=== PATIENT | male | born 2000 | race Caucasian/White ===

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

== ENCOUNTER 2020-08-29 18:40 | Observation (INO) | payer OTHER ==
[2020-08-29] MEDS ORDERED: SODIUM CHLORIDE 0.9% 500 ML 500 ML IV STA (18:53)
[2020-08-29] MEDS ORDERED: SODIUM CHLORIDE 0.9% 1,000 ML IV STA (18:53)
--- NOTE | 2020-08-29 18:56 | ED ---
General Adult HPI - General Source: patient, RN notes reviewed Mode of arrival: ambulatory Limitations: no limitations <Paul Navarrete - Last Filed: 08/29/20 18:58> <Jose Francisco Argueta - Last Filed: 08/29/20 21:03> - General Stated complaint: pancreatitis Time Seen by Provider: 08/29/20 18:55 - History of Present Illness Initial comments: This a 19-year-old male presents emergency Department with chief complaint ABDOMINAL PAIN. PATIENT STATES PAIN STARTED THIS MORNING. PATIENT WAS SEEN BY PCP WHO HAS CT SHOWING EVIDENCE OF ACUTE PANCREATITIS. PATIENT HAS NO SYMPTOMS PAST ALCOHOL HISTORY. PATIENT DID SIGN A NO VOMITING. NO SIGNIFICANT DIARRHEA CONSTIPATION DYSURIA HEMATURIA. NO FEVERS OR CHILLS. PATIENT HAS MID ABDOMINAL TO EPIGASTRIC PAIN. Patient states that he was started Viibryd Within the last month or 2 for his depression. (Paul Navarrete) Dictation was produced using [employer] dictation software. please excuse any grammatical, word or spelling errors. This patient was cared for during a federal and state declared state of emergency secondary to Covid 19 Chief Complaint:19 y Old male presents with abnormal CT History of Present Illness: This is a 19-year-old male presents to the emergency department for abnormal CT. Patient states he woke up at 8 AM this morning with severe abdominal pain. Thought that his symptoms were from being hungry. Patient tried eating however symptoms are not improved. He called his mom was brought to primary care physician ordered a CT of the abdomen and pelvis. Patient CT showed pancreatitis. Patient denies any medical problems. Does not drink alcohol. Denies any history of abdominal surgery. Does have history of asthma. States his pain is epigastric. Without any radiation to the back. Symptoms. The ROS documented in this emergency department record has been reviewed and confirmed by me. Those systems with pertinent positive or negative responses have been documented in the HPI. All other systems are other negative and/or noncontributory. PHYSICAL EXAM: General Impression: Alert and oriented x3, mild distress secondary to abdominal pain HEENT: Normocephalic atraumatic, extra-ocular movements intact, pupils equal and reactive to light bilaterally, mucous membranes moist. Cardiovascular: Heart regular rate and rhythm Chest: Able to complete full sentences, no retractions, no tachypnea Abdomen: abdomen soft, palpatory tenderness to the epigastric region non- distended, no organomegaly, negative Hernandez sign Musculoskeletal: Pulses present and equal in all extremities, no peripheral edema Motor: no focal deficits noted Neurological: CN II-XII grossly intact, no focal motor or sensory deficits noted Skin: Intact with no visualized rashes Psych: Normal affect and mood ED course: 19-year-old male presents to the emergency department for radiographic evidence of pancreatitis. Clinically he does have epigastric pain. All signs upon arrival are within acceptable limits. Lavatory evaluation obtained. CBC shows leukocytosis 12.7 secondary to stress. Metabolic panel is unremarkable. ALT 79. Lipase is 563. Patient reevaluated at bedside. Still appears to be slightly uncomfortable. Given that he does have radiographic evidence of pancreatitis with moderate symptoms that aren't improving with analgesics patient will be admitted to observation for IV hydration, pain control and GI consultation. Case was discussed with Suzie Webber was went except patient's care on behalf of [facility] hospitalist group. (Jose Francisco Argueta) - Related Data Home Medications Medication Instructions Recorded Confirmed busPIRone HCl [Buspar] 10 mg PO HS 02/10/17 08/29/20 Cetirizine HCl 10 mg PO HS 08/29/20 08/29/20 Vilazodone HCl [Viibryd] 40 mg PO HS 08/29/20 08/29/20 Allergies Allergy/AdvReac Type Severity Reaction Status Date / Time egg Allergy Unknown Verified 08/29/20 20:36 milk Allergy Unknown Verified 08/29/20 20:36 Review of Systems ROS Other: All systems not noted in ROS Statement are negative. <Paul Navarrete - Last Filed: 08/29/20 18:58> ROS Other: All systems not noted in ROS Statement are negative. <Jose Francisco Argueta - Last Filed: 08/29/20 21:03> ROS Statement: Those systems with pertinent positive or pertinent negative responses have been documented in the HPI. Past Medical History Past Medical History: Asthma History of Any Multi-Drug Resistant Organisms: None Reported Past Surgical History: No Surgical Hx Reported Past Psychological History: ADD/ADHD, Depression Past Alcohol Use History: None Reported Past Drug Use History: None Reported <Paul Navarrete - Last Filed: 08/29/20 18:58> Course Vital Signs 08/29/20 08/29/20 18:53 19:34 Temperature 98.6 F Pulse Rate 63 67 Respiratory 18 18 Rate Blood Pressure 121/82 125/85 O2 Sat by Pulse 98 98 Oximetry Medical Decision Making - Lab Data Result diagrams: 08/29/20 19:33 08/29/20 19:33 <Jose Francisco Argueta - Last Filed: 08/29/20 21:03> - Lab Data Lab Results 08/29/20 08/29/20 Range/Units 19:33 19:33 WBC 12.7 H (4.0-11.0) k/uL RBC 5.27 (4.30-5.90) m/uL Hgb 15.4 (13.0-17.5) gm/dL Hct 44.2 (39.0-53.0) % MCV 83.9 (80.0-100.0) fL MCH 29.1 (25.0-35.0) pg MCHC 34.7 (31.0-37.0) g/dL RDW 13.2 (11.5-15.5) % Plt Count 268 (150-450) k/uL MPV 7.0 Neutrophils % 80 % Lymphocytes % 13 % Monocytes % 5 % Eosinophils % 1 % Basophils % 0 % Neutrophils # 10.2 H (1.3-7.7) k/uL Lymphocytes # 1.7 (1.0-4.8) k/uL Monocytes # 0.7 (0-1.0) k/uL Eosinophils # 0.1 (0-0.7) k/uL Basophils # 0.0 (0-0.2) k/uL Sodium 135 L (137-145) mmol/L Potassium 3.6 (3.5-5.1) mmol/L Chloride 99 (98-107) mmol/L Carbon Dioxide 28 (22-30) mmol/L Anion Gap 8 mmol/L BUN 12 (9-20) mg/dL Creatinine 0.98 (0.66-1.25) mg/dL Est GFR (CKD-EPI)AfAm >90 (>60 ml/min/1.73 sqM) Est GFR (CKD-EPI)NonAf >90 (>60 ml/min/1.73 sqM) Glucose 98 (74-99) mg/dL Calcium 9.7 (8.4-10.2) mg/dL Total Bilirubin 0.7 (0.2-1.3) mg/dL AST 48 (17-59) U/L ALT 79 H (4-49) U/L Alkaline Phosphatase 86 (38-126) U/L Total Protein 7.6 (6.3-8.2) g/dL Albumin 4.6 (3.5-5.0) g/dL Lipase 563 H (23-300) U/L Disposition <Paul Navarrete - Last Filed: 08/29/20 18:58> Decision Time: 21:02 <Jose Francisco Argueta - Last Filed: 08/29/20 21:03> Clinical Impression: Pancreatitis Disposition: ADMITTED IP TO THIS HOSP Condition: Fair Referrals: Patricia Wiley DO [Primary Care Provider] - 1-2 days
[2020-08-29] MEDS ORDERED: KETOROLAC 15 MG/ML 1 ML VIAL IVP STA (19:53)
[2020-08-29 19:59] LABS: Basophils % (A) 0 %; Eosinophils # (A) 0.1 k/uL (0-0.7); Eosinophils % (A) 1 %; HCT 44.2 % (39.0-53.0); HGB 15.4 gm/dL (13.0-17.5); Lymphocytes # (A) 1.7 k/uL (1.0-4.8); Lymphocytes % (A) 13 %; MCH 29.1 pg (25.0-35.0); MCHC 34.7 g/dL (31.0-37.0); MCV 83.9 fL (80.0-100.0); Monocytes # (A) 0.7 k/uL (0-1.0); Monocytes % (A) 5 %; Neutrophils # (A) 10.2 k/uL (1.3-7.7); Neutrophils % (A) 80 %; Platelet Count 268 k/uL (150-450); RBC 5.27 m/uL (4.30-5.90); RDW 13.2 % (11.5-15.5); WBC 12.7 k/uL (4.0-11.0)
[2020-08-29 20:14] LABS: ALT 79 U/L (4-49); AST 48 U/L (17-59); African American GFR (CKD) >90 (>60 ml/min/1.73 sqM); Albumin 4.6 g/dL (3.5-5.0); Alkaline Phosphatase 86 U/L (38-126); Anion Gap 8 mmol/L; Blood Urea Nitrogen 12 mg/dL (9-20); Calcium 9.7 mg/dL (8.4-10.2); Carbon Dioxide 28 mmol/L (22-30); Chloride 99 mmol/L (98-107); Glucose 98 mg/dL (74-99); Lipase 563 U/L (23-300); Non-African American GFR(CKD) >90 (>60 ml/min/1.73 sqM); Potassium 3.6 mmol/L (3.5-5.1); Sodium 135 mmol/L (137-145); Total Bilirubin 0.7 mg/dL (0.2-1.3); Total Protein 7.6 g/dL (6.3-8.2)
[2020-08-29] MEDS ORDERED: ACETAMINOPHEN TAB 325 MG TAB PO PRN (20:58)
[2020-08-29] MEDS ORDERED: ONDANSETRON 4 MG/2 ML VIAL IVP PRN (20:58)
[2020-08-29] MEDS ORDERED: NALOXONE 0.4 MG/ML 1 ML VIAL IV PRN (20:58)
[2020-08-29] MEDS ORDERED: MORPHINE SULFATE 4 MG/ML SYRINGE IV STA (21:01)
[2020-08-29] MEDS: SODIUM CHLORIDE 0.9% 1,000 ML IV SCH (21:53)
[2020-08-30] MEDS: NON FORMULARY DRUG (Vilazodone Hcl [Viibryd] 40 MG Tablet) PO SCH ×2 (00:02→20:39)
[2020-08-30] MEDS: LORATADINE 10 MG TAB PO SCH ×2 (00:04→20:38)
[2020-08-30] MEDS: busPIRone HCl 10 MG TAB PO SCH ×2 (00:04→20:38)
[2020-08-30] MEDS: MORPHINE SULFATE 4 MG/ML SYRINGE IV PRN ×4 (00:13→22:16)
[2020-08-30] MEDS: SODIUM CHLORIDE 0.9% 1,000 ML IV SCH ×4 (04:30→23:40)
--- NOTE | 2020-08-30 09:04 | US ---
EXAMINATION TYPE: US gallbladder DATE OF EXAM: 08/30/2020 COMPARISON: CT 08/30/2019 CLINICAL HISTORY: pancreatitis, epigastric pain. Pancreatitis, nausea EXAM MEASUREMENTS: Liver Length: 17.0 cm Gallbladder Wall: 0.3 cm CBD: 0.5 cm Right Kidney: 11.1 x 4.2 x 4.4 cm Technical limitations due to patient's body habitus and large amount of overlying bowel content Pancreas: Obscured by bowel gas Liver: limited evaluation, visualized portions appear wnl Gallbladder: no evidence of stones Evidence for sonographic Hernandez's sign: no CBD: appears wnl Right Kidney: no evidence of hydronephrosis IMPRESSION: Exam is limited. Correlate for hepatic steatosis
[2020-08-30 11:14] LABS: Basophils % (A) 0 %; Eosinophils % (A) 0 %; HCT 44.4 % (39.0-53.0); HGB 14.8 gm/dL (13.0-17.5); Lymphocytes # (A) 1.3 k/uL (1.0-4.8); Lymphocytes % (A) 13 %; MCH 28.4 pg (25.0-35.0); MCHC 33.3 g/dL (31.0-37.0); MCV 85.2 fL (80.0-100.0); Monocytes # (A) 0.7 k/uL (0-1.0); Monocytes % (A) 7 %; Neutrophils # (A) 7.8 k/uL (1.3-7.7); Neutrophils % (A) 78 %; Platelet Count 227 k/uL (150-450); RBC 5.21 m/uL (4.30-5.90); RDW 13.3 % (11.5-15.5); WBC 10.1 k/uL (4.0-11.0)
[2020-08-30 11:35] LABS: ALT 62 U/L (4-49); AST 34 U/L (17-59); African American GFR (CKD) >90 (>60 ml/min/1.73 sqM); Albumin 3.9 g/dL (3.5-5.0); Albumin/Globulin Ratio 1.4; Alkaline Phosphatase 79 U/L (38-126); Amylase 160 U/L (30-110); Anion Gap 7 mmol/L; Blood Urea Nitrogen 10 mg/dL (9-20); Calcium 9.2 mg/dL (8.4-10.2); Carbon Dioxide 30 mmol/L (22-30); Chloride 102 mmol/L (98-107); Globulin 2.7 g/dL; Glucose 92 mg/dL (74-99); Lipase 574 U/L (23-300); Non-African American GFR(CKD) >90 (>60 ml/min/1.73 sqM); Potassium 4.1 mmol/L (3.5-5.1); Sodium 139 mmol/L (137-145); Total Bilirubin 1.3 mg/dL (0.2-1.3); Total Protein 6.6 g/dL (6.3-8.2)
[2020-08-30 12:43] LABS: Triglycerides 100 mg/dL (<150)
--- NOTE | 2020-08-30 15:50 | HP ---
HISTORY AND PHYSICAL DATE OF SERVICE: 08/30/2020. CHIEF COMPLAINT: Abdominal pain. HISTORY OF PRESENT ILLNESS: This 19-year-old gentleman with a past medical history of asthma, being followed by Dr. Wiley in the outpatient setting is complaining of severe abdominal pain. The pain was felt yesterday morning. It was felt in the anterior part of the chest. CT scan showed significant pancreatitis and amylase and lipase elevated. Patient was admitted for further evaluation. There is no history of fever or rigors. There is no history of headache, loss of consciousness or seizures. No history of any contact with COVID-19 infection. Other labs showed sodium is 135, and ALT was 79. WBC was 12.7 on admission. There is no history of fever, rigors, chills at this time. PAST MEDICAL HISTORY: History of asthma, ADD, ADHD, anxiety, depression, vaping. MEDICATIONS: Medications are: 1. BuSpar. 2. Vilazodone. 3. Cetirizine. ALLERGIES: MILK and EGGS. FAMILY HISTORY: No history of heart disease or strokes in the family. SOCIAL HISTORY: As mentioned earlier, vaping. REVIEW OF SYSTEMS: ENT: No diminished hearing or diminished vision. CARDIOVASCULAR SYSTEM: No angina. RESPIRATORY SYSTEM: As mentioned earlier. GI: As mentioned earlier. : No dysuria. NERVOUS SYSTEM: No numbness or weakness. ALLERGY/IMMUNOLOGY: As mentioned earlier. HEMATOLOGY/ONCOLOGY: No history of anemia. ENDOCRINE: No history of diabetes or hypothyroidism. CONSTITUTIONAL: As mentioned earlier. DERMATOLOGY: Negative. RHEUMATOLOGY: Negative. PSYCHIATRY: As mentioned earlier. PHYSICAL EXAMINATION: The patient is alert and oriented x3. Pulse 64, blood pressure 105/59, respiration 14, temperature 97.8, pulse ox 98% on room air. HEENT: Conjunctivae normal. NECK: No jugular venous distention. CARDIOVASCULAR: S1, S2 muffled. RESPIRATORY: Breath sounds diminished at the bases. No rhonchi, no crackles. ABDOMEN: Soft. Mild diffuse tenderness upper abdomen. No guarding. No rigidity. No mass palpable. LEGS: No edema, no swelling. NERVOUS SYSTEM: Higher function as mentioned earlier. Moves all 4 limbs. No focal motor or sensory deficits. LYMPHATICS: No lymphadenopathy of the neck, axillae or groin. SKIN: No ulcer, rash or bleeding. JOINTS: No active deforming arthropathy. LABS: WBC 10.1, hemoglobin 14.8. Other labs are noted. ASSESSMENT: 1. Abdominal pain with acute severe pancreatitis. 2. Hyponatremia. 3. Increased ALT. 4. Increased WBC, improved. 5. History of asthma. 6. History of attention deficit disorder, attention deficit hyperactivity disorder. 7. History of anxiety. 8. History of depression. 9. History of vaping. 10.Asthma, chronic intermittent. RECOMMENDATIONS AND DISCUSSION: This 19-year-old gentleman who presented with multiple complex medical issues, will monitor the patient closely. Continue symptomatic treatment. Otherwise, Gastroenterology consultation. CT scan noted. Guarded prognosis. Further recommendations to follow. The patient is on n.p.o. at this time. IgG subclasses are ordered. CROW also ordered. I would also recommend UA with micro also. A copy of dictation forwarded to Dr. Wiley's office. KALYAN / CHRISTINE: [phone] /
[2020-08-30 17:41] LABS: Appearance,Urine Clear (Clear); Bilirubin,Urine Negative (Negative); Blood,Urine Negative (Negative); Color,Urine Light Yellow; Glucose,Urine (UA) Negative (Negative); Ketones,Urine 2+ (Negative); Leukocyte Esterase,Urine Negative (Negative); Nitrite,Urine Negative (Negative); Protein,Urine Negative (Negative); Specific Gravity,Urine 1.011 (1.001-1.035); Urobilinogen,Urine <2.0 mg/dL (<2.0)
[2020-08-30 17:48] LABS: Amphetamine Screen,Urine Not Detected (NotDetected); Barbiturate Screen,Urine Not Detected (NotDetected); Benzodiazepines Screen,Urine Not Detected (NotDetected); Cocaine Screen,Urine Not Detected (NotDetected); Methadone Screen, Urine Not Detected (NotDetected); Opiate Screen,Urine Detected (NotDetected); Oxycodone Screen, Urine Not Detected (NotDetected); Phencyclidine Screen,Urine Not Detected (NotDetected); Tricyclic Antidepressant,Urine Not Detected (NotDetected); Urn Cannabinoid Scrn Detected (NotDetected)
[2020-08-31 03:26] VITALS: RESP 18
[2020-08-31] MEDS: SODIUM CHLORIDE 0.9% 1,000 ML IV SCH ×2 (03:59→08:31)
--- NOTE | 2020-08-31 06:46 | P.CONS ---
History of Present Illness - Reason for Consult Consult date: 08/30/20 Pancreatitis Requesting physician: Patricia Wiley - Chief Complaint Abdominal pain - History of Present Illness 19-year-old male with a medical history significant for depression who presented to the hospital with complaints of abdominal pain. The patient reports 1 day of severe epigastric abdominal pain. Pain is in the epigastric region of his abdomen and into his chest. Pain is severe in nature with associated nausea but no vomiting. No prior episodes of similar pain. No change in bowel habits, constipation, diarrhea or blood per rectum. The patient denies any new exposures, any new medications, or family history of pancreatitis or hepatobiliary pathology. On presentation the patient was found to have elevation in his lipase at 563 with computed tomography scan of the abdomen and pelvis with findings of acute pancreatitis of the pancreatic tail with no evidence of necrosis or peripancreatic fluid. Subsequent ultrasound the gallbladder was limited with no CBD dilation or cholelithiasis noted. Currently the patient is still reporting some abdominal pain, otherwise no acute complaints. Review of Systems REVIEW OF SYSTEMS: CONSTITUTIONAL: Denies any fevers, chills, weight change or fatigue. CARDIOVASCULAR: Denies any chest pain, palpitations high or low blood pressures RESPIRATORY: Denies any shortness of breath, hemoptysis or cough. GENITOURINARY: No dysuria or hematuria. MUSCULOSKELETAL: No weakness reported. SKIN: Denies any new rashes or lesions, jaundice or pallor. PSYCHIATRIC: Denies any depression or anxiety, the patient does have a history of depression and overdose of the past. NEUROLOGY: Denies headache, denies any new focal deficits. EARS/NOSE/THROAT: No recent hearing change, congestion, nasal discharge or sore throat. EYES: No pain in eyes, discharge or change in vision. GASTROINTESTINAL: As per HPI. Past Medical History Past Medical History: Asthma History of Any Multi-Drug Resistant Organisms: None Reported Past Surgical History: No Surgical Hx Reported Additional Past Surgical History / Comment(s): Temple teeth removal Past Anesthesia/Blood Transfusion Reactions: No Reported Reaction Past Psychological History: ADD/ADHD, Anxiety, Depression Smoking Status: Vaper Past Alcohol Use History: None Reported Past Drug Use History: None Reported Additional History: Family history: Reviewed with the patient and noncontributory to current medical presentation, the patient denies any family history of pancreatic or hepatobiliary disease. Medications and Allergies Home Medications Medication Instructions Recorded Confirmed Type busPIRone HCl [Buspar] 10 mg PO HS 02/10/17 08/29/20 History Cetirizine HCl 10 mg PO HS 08/29/20 08/29/20 History Vilazodone HCl [Viibryd] 40 mg PO HS 08/29/20 08/29/20 History Allergies Allergy/AdvReac Type Severity Reaction Status Date / Time egg Allergy Unknown Verified 08/29/20 20:36 milk Allergy Unknown Verified 08/29/20 20:36 Physical Exam Vitals: Vital Signs Temp Pulse Pulse Resp BP BP Pulse Ox 08/30/20 06:45 97.7 F 64 16 116/68 98 08/30/20 01:53 97.8 F 64 14 105/59 98 08/30/20 01:28 18 08/29/20 23:49 98.3 F 60 14 100/68 100 08/29/20 21:58 61 18 115/70 98 08/29/20 19:34 67 18 125/85 98 08/29/20 18:53 98.6 F 63 18 121/82 98 Intake and Output 08/29/20 08/30/20 08/30/20 22:59 06:59 14:59 Intake Total 1060 Balance 1060 Intake: Intake, IV Titration 1060 Amount Sodium Chloride 0.9% 1, 1060 000 ml @ 120 mls/hr IV . Q8H20M [facility] Rx#:[id number] Other: Voiding Method Toilet # Voids 2 Weight 106.594 kg On physical examination, patient appears comfortable in no apparent distress. HEAD: Normocephalic, atraumatic. EYES: No scleral icterus. No conjunctival injection. MOUTH: No lesions, tongue midline. NECK: Trachea midline, no gross abnormalities. CHEST: Clear to auscultation with no wheezing or rhonchi appreciated. HEART: Regular rate and rhythm. ABDOMEN: Soft, mildly tender to palpation. Bowel sounds are positive. No organomegaly. No guarding or rigidity. EXTREMITIES: No pedal edema. SKIN: No rashes, no jaundice. NEUROLOGIC: Alert and oriented x3. No focal deficits. Results CBC & Chem 7: 08/30/20 09:49 08/30/20 09:49 Labs: Abnormal Lab Results - Last 24 Hours (Table) 08/29/20 08/29/20 08/30/20 Range/Units 19:33 19:33 09:49 WBC 12.7 H (4.0-11.0) k/uL Neutrophils # 10.2 H 7.8 H (1.3-7.7) k/uL Sodium 135 L (137-145) mmol/L ALT 79 H (4-49) U/L Amylase (30-110) U/L Lipase 563 H (23-300) U/L 08/30/20 Range/Units 09:49 WBC (4.0-11.0) k/uL Neutrophils # (1.3-7.7) k/uL Sodium (137-145) mmol/L ALT 62 H (4-49) U/L Amylase 160 H (30-110) U/L Lipase 574 H (23-300) U/L CT scan - abdomen: report reviewed (Computed tomography scan of the abdomen and pelvis significant findings of acute uncomplicated pancreatitis.) Assessment and Plan (1) Pancreatitis Narrative/Plan: 19-year-old male presenting to the hospital with abdominal pain, the patient was found to have elevation in his lipase and CT findings of acute uncomplicated pancreatitis on presentation. No evidence of cholelithiasis or choledocholithiasis on ultrasound of the abdomen. Patient denies any excessive alcohol use or abuse. The patient does use tobacco and marijuana products. No prior episodes of pancreatitis. He denies any family history of pancreatic or hepatobiliary disease. Current Visit: Yes Status: Acute Code(s): K85.90 - ACUTE PANCREATITIS WITHOUT NECROSIS OR INFECTION, UNSP SNOMED Code(s): 02217580 (2) Abdominal pain Current Visit: Yes Status: Acute Code(s): R10.9 - UNSPECIFIED ABDOMINAL PAIN SNOMED Code(s): 21779993 Plan: Supportive care Nothing by mouth except for ice chips Continue aggressive IV hydration Continue pain control Continue to monitor CBC, CMP Triglyceride level, CROW and IgG4 levels ordered Extensive discussion with the patient regarding avoidance of tobacco and marijuana products going forward Thank you for allowing us to participate in the care of the patient
[2020-08-31 07:19] LABS: ALT 49 U/L (4-49); AST 28 U/L (17-59); African American GFR (CKD) >90 (>60 ml/min/1.73 sqM); Albumin 3.9 g/dL (3.5-5.0); Albumin/Globulin Ratio 1.3; Alkaline Phosphatase 69 U/L (38-126); Amylase 100 U/L (30-110); Anion Gap 9 mmol/L; Blood Urea Nitrogen 8 mg/dL (9-20); Carbon Dioxide 25 mmol/L (22-30); Chloride 103 mmol/L (98-107); Cholesterol 186 mg/dL (<200); Globulin 2.9 g/dL; Glucose 92 mg/dL (74-99); HDL Cholesterol 40 mg/dL (40-60); LDL Cholesterol,Calculated 128 mg/dL (0-99); Lipase 247 U/L (23-300); Non-African American GFR(CKD) >90 (>60 ml/min/1.73 sqM); Potassium 3.6 mmol/L (3.5-5.1); Sodium 137 mmol/L (137-145); Total Bilirubin 1.8 mg/dL (0.2-1.3); Total Protein 6.8 g/dL (6.3-8.2); Triglycerides 91 mg/dL (<150)
[2020-08-31 09:32] LABS: IgG Subclass 3 21.8 mg/dL (11.0-85.0); IgG Subclass 4 67.6 mg/dL (3.0-175.0)
[2020-08-31 10:04] LABS: Basophils # (A) 0.02 X 10*3/uL (0.00-0.10); Basophils % (A) 0.2 %; Eosinophils # (A) 0.01 X 10*3/uL (0.04-0.35); Eosinophils % (A) 0.1 %; HCT 42.3 % (39.6-50.0); HGB 13.8 g/dL (13.0-17.0); Lymphocytes # (A) 1.67 X 10*3/uL (0.90-5.00); Lymphocytes % (A) 16.9 %; MCH 27.8 pg (27.0-32.0); MCHC 32.6 g/dL (32.0-37.0); MCV 85.3 fL (80.0-97.0); Mean Platelet Volume 10.2 fL (9.5-12.2); Monocytes # (A) 1.18 X 10*3/uL (0.20-1.00); Monocytes % (A) 11.9 %; Neutrophils # (A) 6.99 X 10*3/uL (1.80-7.70); Neutrophils % (A) 70.6 %; Platelet Count 249 X 10*3/uL (140-440); RBC 4.96 X 10*6/uL (4.40-5.60); RDW 12.9 % (11.5-14.5)
[2020-08-31 14:02] VITALS: BP 124/79; PULSE 72; TEMP 97.9
--- NOTE | 2020-08-31 15:10 | P.PN ---
Subjective Progress Note Date: 08/31/20 Principal diagnosis: Pancreatitis Patient was seen and examined lying in bed. He states the abdominal pain has improved. He denies any nausea or vomiting. He is using pain medication in moderation. Tolerated clear liquid diet without any difficulties and would like to advance. Pancreatic enzymes continued to trend down. Denies having a bowel movement, but did pass gas. Objective - Vital Signs Vital signs: Vital Signs Temp 97.9 F 08/31/20 13:27 Pulse 72 08/31/20 13:27 Resp 18 08/31/20 13:27 BP 124/79 08/31/20 13:27 Pulse Ox 98 08/31/20 13:27 Intake & Output 08/30/20 08/31/20 08/31/20 18:59 06:59 18:59 Intake Total 1000 3200 900 Balance 1000 3200 900 Intake: Intake, IV Titration 1000 3200 Amount Sodium Chloride 0.9% 1, 1000 3200 000 ml @ 125 mls/hr IV . Q8H [facility] Rx#:[id number] Oral 0 900 Other: Voiding Method Toilet # Voids 1 4 1 # Bowel Movements 0 - Exam General appearance: The patient is alert, oriented, appears in no acute distress. HET: Head is normocephalic and atraumatic. Conjunctiva pink. Sclera anicteric. Neck: Supple without lymphadenopathy. Abdomen: Soft, mild epigastric tenderness, nondistended with bowel sounds. No guarding or rigidity. Extremities: Normal skin color and turgor. No pedal edema Skin: No rashes, no jaundice Neurological: No focal deficits. Alert and oriented 3. - Labs CBC & Chem 7: 08/31/20 06:03 08/31/20 06:03 Labs: Abnormal Lab Results - Last 24 Hours (Table) 08/30/20 08/31/20 08/31/20 Range/Units 17:17 06:03 06:03 Monocytes # 1.18 H (0.20-1.00) X 10*3/uL Eosinophils # 0.01 L (0.04-0.35) X 10*3/uL BUN 8 L (9-20) mg/dL Total Bilirubin 1.8 H (0.2-1.3) mg/dL LDL Cholesterol, Calc 128 H (0-99) mg/dL Urine Ketones 2+ H (Negative) Urine Opiates Screen Detected H (NotDetected) U Marijuana (THC) Screen Detected H (NotDetected) Assessment and Plan (1) Pancreatitis Narrative/Plan: 19-year-old male presenting to the hospital with abdominal pain, the patient was found to have elevation in his lipase and CT findings of acute uncomplicated pancreatitis on presentation. No evidence of cholelithiasis or choledocholithiasis on ultrasound of the abdomen. Patient denies any excessive alcohol use or abuse. The patient does use tobacco and marijuana products. No prior episodes of pancreatitis. He denies any family history of pancreatic or hepatobiliary disease. Blood workup including CROW, IgG 4 and triglycerides all negative. Current Visit: Yes Status: Acute Code(s): K85.90 - ACUTE PANCREATITIS WITHOUT NECROSIS OR INFECTION, UNSP SNOMED Code(s): 55313914 (2) Abdominal pain Current Visit: Yes Status: Acute Code(s): R10.9 - UNSPECIFIED ABDOMINAL PAIN SNOMED Code(s): 51847690 Plan: Supportive care Advance to low-fat diet Decrease IVF to 125ml/hr Continue pain control Continue to monitor CBC, CMP Triglyceride level, CROW and IgG4 levels ordered and reviewed, negative Extensive discussion with the patient regarding avoidance of tobacco and marijuana products going forward Thank you for allowing us to participate in the care of the patient, he may be discharged home today if he tolerates his diet The patient and his mother were instructed to follow-up as needed if recurrence occurs. If recurrence occurs will consider doing repeat MRI as well as possible EUS. Dr. Aburto I agree with the dictator's note, documented as a scribe by Britney Krishnan.
--- NOTE | 2020-08-31 16:38 | P.DS ---
Providers Date of admission: 08/29/20 20:58 Expected date of discharge: 08/31/20 Attending physician: Justus Concepcion Consults: 08/29/20 20:59 Consult Physician Routine Consulting Provider: Caesar Aburto Consult Reason/Comments: pancreatitis Do you want consulting provider notified?: Yes Primary care physician: Patricia Rose Hospital Course: Final diagnosis Abdominal pain with acute severe pancreatitis Hyponatremia Increased ALT Increased white blood count, improved History of asthma history of attention deficit disorder, attention deficit hyperactivity disorder history of anxiety history of depression history of vaping Asthma, chronic intermittent Discharge disposition Patient is being discharged in a stable condition with guarded prognosis to home. Patient will follow-up with Dr. Rose in the outpatient setting upon discharge. Patient will also follow-up with GI in the outpatient setting as discussed and scheduled. A to continue with full liquid and advance slowly the low fiber diet as tolerated. Total time taken is greater than 35 minutes. Hospital course Patient is a 19-year-old male who was recently admitted with severe abdominal pain and computed tomography scan showed significant pancreatitis with amylase and lipase is elevated. GI following recommending outpatient follow-up. Patient's amylase and lipase have improved and tolerating clear liquids and can be advanced to full liquids and slowly advanced to a low fiber. Patient states he has some mild abdominal discomfort and states it is not pain but just uncomfortable. Prescription provided for repeat labs to monitor amylase and lipase. Currently no reports of chest pain, shortness of breath, or palpitations. Patient is afebrile. No reports of nausea or vomiting and patien t is tolerating diet. Patient will be discharged home today. Guarded prognosis. On exam vital signs are stable. Cardio S1, S2 are muffled. Respiratory system shows diminished breath sounds at the bases with no wheezing or rhonchi noted. Abdomen is soft and nontender. Nervous system shows no focal deficits. Please refer to medication reconciliation sheet for a list of medications. Patient Condition at Discharge: Fair Plan - Discharge Summary Discharge Rx Participant: No New Discharge Prescriptions: Continue busPIRone HCl [Buspar] 10 mg PO HS Vilazodone HCl [Viibryd] 40 mg PO HS Cetirizine HCl 10 mg PO HS Discharge Medication List busPIRone HCl [Buspar] 10 mg PO HS 02/10/17 [History] Cetirizine HCl 10 mg PO HS 08/29/20 [History] Vilazodone HCl [Viibryd] 40 mg PO HS 08/29/20 [History] Follow up Appointment(s)/Referral(s): Patricia Rose DO [Primary Care Provider] - 09/05/20 12:20 pm Caesar Aburto MD [STAFF PHYSICIAN] - 10/01/20 4:00 pm Ambulatory/Diagnostic Orders: Amylase [LAB.AMB] Time Frame: 3 Days, Location: None Selected Patient Instructions/Handouts: Pancreatitis (GEN) Activity/Diet/Wound Care/Special Instructions: Activity Limited until follow-up Follow-up with primary care provider upon discharge Repeat labs in a few days to monitor lab values follow up with GI in the outpatient setting as discussed Continue with clear to full liquids for the next few days and advance slowly to low fiber diet Discharge Disposition: HOME SELF-CARE
== END 2020-08-31 16:25 | disposition home or self-care (01) ==
LOC: EC 18:40 → 6NMEDSUR 20:58
PROVIDERS: ADMIT Hospitalist; ATTEND Hospitalist
DX: K85.90 Acute pancreatitis without necrosis or infection, unspecified (principal); E87.1 Hypo-osmolality and hyponatremia; J45.20 Mild intermittent asthma, uncomplicated; F32.9 Major depressive disorder, single episode, unspecified; F41.9 Anxiety disorder, unspecified; F90.9 Attention-deficit hyperactivity disorder, unspecified type; F17.290 Nicotine dependence, other tobacco product, uncomplicated; Z79.899 Other long term (current) drug therapy; Z91.012 Allergy to eggs; Z91.011 Allergy to milk products
CPT/HCPCS: 96376; 96361 ×3; 96374; 96375; 99285; 36415; 80061; 80053 ×3; 82150 ×2; 83605; 83690 ×3; 84478; 85025 ×3; 81003; 82787; 86038; 80306; 87635; 76705; G0378 ×3; J2270 ×2; J1885

== ENCOUNTER → 2020-08-29 | Outpatient (CLI) | payer OTHER ==
--- NOTE | 2020-08-29 18:33 | CT ---
EXAMINATION TYPE: CT abdomen w con DATE OF EXAM: 08/29/2020 COMPARISON: None HISTORY: Acute periumbilical pain Stat hold and call CT DLP: 110.7.80 mGycm Automated exposure control for dose reduction was used. TECHNIQUE: Helical acquisition of images was performed from the lung bases through the top of iliac crest to include entire abdomen. CONTRAST: Performed with Oral Contrast and with IV Contrast, patient injected with 100 mL of Isovue 300. FINDINGS: LUNG BASES: Normal. LIVER/GB: Normal. PANCREAS: There is peripancreatic inflammation about the pancreatic tail. There is homogenous pancrea tic enhancement diffusely. No peripancreatic fluid collection. SPLEEN: Normal. ADRENALS: Normal. KIDNEYS: Normal. BOWEL: Visualized bowel loops redemonstrated no evidence of obstruction or thickening. LYMPH NODES: No abdominal lymphadenopathy. OSSEOUS STRUCTURES: No acute osseous abnormality. FREE AIR: No free air is visualized. VASCULAR: Abdominal aorta normal in caliber. There is contrast opacification of the portal vein, supe rior mesenteric vein, and splenic vein. IMPRESSION: ACUTE PANCREATITIS OF THE PANCREATIC TAIL. NO EVIDENCE OF PANCREATIC NECROSIS OR PERIPANCREATIC FLUID COLLECTION. FINDINGS CALLED BY [employer] CRUSHER OPERATOR AT TIME OF DICTATION. PATIENT INSTRUCTED TO GO TO THE EMERGENCY RO OM.
== END | disposition home or self-care (01) ==
LOC: RADCTMAIN 15:42
PROVIDERS: ATTEND Family Medicine
DX: K85.90 Acute pancreatitis without necrosis or infection, unspecified (principal)
CPT/HCPCS: 74160; Q9967

== ENCOUNTER 2020-10-17 18:13 | Emergency (ER) | payer OTHER ==
--- NOTE | 2020-10-17 19:14 | ED ---
Psych HPI - General Source: patient, family, RN notes reviewed Mode of arrival: ambulatory <Jey Butts - Last Filed: 10/17/20 19:07> <Amado Vernon - Last Filed: 10/18/20 02:39> - General Chief Complaint: Psychiatric Symptoms Stated Complaint: EPS eval Time Seen by Provider: 10/17/20 18:40 - History of Present Illness Initial Comments: Patient is a 19-year-old male that presents to emergency department for increased depression with suicidal ideations. He notes that structures such as pressure for school, not smoking weed for one day and his medication increase could all be playing a role in his increased depression and suicidal ideations. He denied any plan at this time. He did note that he had 1 previous attempt back in 2017. He notes that he recognized the symptoms this time and decided to get help before trying. He was in moderate emotional distress while laying in bed during the exam interview. He denied any other symptoms or complaints at this time. He denied any chest pain shortness of breath headache nausea vomiting diarrhea constipation fever fatigue chills. (Jey Butts) - Related Data Home Medications Medication Instructions Recorded Confirmed busPIRone HCl [Buspar] 10 mg PO BID 02/10/17 10/17/20 Cetirizine HCl 10 mg PO HS 08/29/20 10/17/20 Vilazodone HCl [Viibryd] 40 mg PO HS 08/29/20 10/17/20 Albuterol Sulfate [Albuterol 2 puff INHALATION RT-QID PRN 10/17/20 10/17/20 Sulfate Hfa] Azelaic Acid 1 applic TOPICAL BID 10/17/20 10/17/20 Beclomethasone Dipropionate [Qvar 1 puff INHALATION RT-BID 10/17/20 10/17/20 40 mcg Redihaler] Minocycline HCl [Minocin] 100 mg PO DAILY 10/17/20 10/17/20 Allergies Allergy/AdvReac Type Severity Reaction Status Date / Time No Known Allergies Allergy Verified 10/17/20 18:33 Review of Systems ROS Other: All systems not noted in ROS Statement are negative. <Jey Butts - Last Filed: 10/17/20 19:07> ROS Other: All systems not noted in ROS Statement are negative. <Amado Vernon - Last Filed: 10/18/20 02:39> ROS Statement: Those systems with pertinent positive or pertinent negative responses have been documented in the HPI. Past Medical History Past Medical History: Asthma History of Any Multi-Drug Resistant Organisms: None Reported Past Surgical History: No Surgical Hx Reported Additional Past Surgical History / Comment(s): [place] teeth removal Past Anesthesia/Blood Transfusion Reactions: No Reported Reaction Past Psychological History: ADD/ADHD, Anxiety, Depression Smoking Status: Vaper Past Alcohol Use History: None Reported Past Drug Use History: Marijuana <Jey Butts - Last Filed: 10/17/20 19:07> General Exam Limitations: no limitations General appearance: alert, in no apparent distress, in distress (Emotional) Head exam: Present: atraumatic, normocephalic, normal inspection Eye exam: Present: normal appearance, PERRL, EOMI. Absent: scleral icterus, conjunctival injection, periorbital swelling Neck exam: Present: normal inspection Respiratory exam: Present: normal lung sounds bilaterally. Absent: respiratory distress, wheezes, rales, rhonchi, stridor Cardiovascular Exam: Present: regular rate, normal rhythm, normal heart sounds. Absent: systolic murmur, diastolic murmur, rubs, gallop, clicks GI/Abdominal exam: Present: soft, normal bowel sounds. Absent: distended, tenderness, guarding, rebound, rigid Extremities exam: Present: normal inspection, full ROM, normal capillary refill. Absent: tenderness, pedal edema, joint swelling, calf tenderness Neurological exam: Present: alert, oriented X3, CN II-XII intact Psychiatric exam: Present: normal affect, normal mood Skin exam: Present: warm, dry, intact, normal color. Absent: rash <Jey Butts - Last Filed: 10/17/20 19:07> Course Vital Signs 10/17/20 10/18/20 18:34 01:17 Temperature 97.9 F 98.5 F Pulse Rate 65 64 Respiratory 18 16 Rate Blood Pressure 132/93 145/88 O2 Sat by Pulse 99 99 Oximetry Medical Decision Making <Jey Butts - Last Filed: 10/17/20 19:07> <Amado Vernon - Last Filed: 10/18/20 02:39> - Medical Decision Making 19-year-old male with depression complaining of suicidal ideations with a plan. Urine drug screen and alcohol breath test ordered. Alcohol breath test 0.000. EPS will be notified. (Jey Butts) 19 male medically clear for psychiatry, patient seen eval by psychiatry here in the ER able to be discharged home, not currently suicidal (Amado Vernon) - Lab Data Lab Results 10/17/20 Range/Units 20:21 Urine Opiates Screen Not Detected (NotDetected) Ur Oxycodone Screen Not Detected (NotDetected) Urine Methadone Screen Not Detected (NotDetected) Ur Propoxyphene Screen Not Detected (NotDetected) Ur Barbiturates Screen Not Detected (NotDetected) U Tricyclic Antidepress Not Detected (NotDetected) Ur Phencyclidine Scrn Not Detected (NotDetected) Ur Amphetamines Screen Not Detected (NotDetected) U Methamphetamines Scrn Not Detected (NotDetected) U Benzodiazepines Scrn Not Detected (NotDetected) Urine Cocaine Screen Not Detected (NotDetected) U Marijuana (THC) Screen Detected H (NotDetected) Disposition <Jey Butts - Last Filed: 10/17/20 19:07> Is patient prescribed a controlled substance at d/c from ED?: No <Amado Vernon - Last Filed: 10/18/20 02:39> Clinical Impression: Depression Disposition: HOME SELF-CARE Condition: Fair Instructions (If sedation given, give patient instructions): Depression (ED) Referrals: Patricia Wiley DO [Primary Care Provider] - 1-2 days
[2020-10-17 20:38] LABS: Amphetamine Screen,Urine Not Detected (NotDetected); Barbiturate Screen,Urine Not Detected (NotDetected); Benzodiazepines Screen,Urine Not Detected (NotDetected); Cocaine Screen,Urine Not Detected (NotDetected); Methadone Screen, Urine Not Detected (NotDetected); Opiate Screen,Urine Not Detected (NotDetected); Oxycodone Screen, Urine Not Detected (NotDetected); Phencyclidine Screen,Urine Not Detected (NotDetected); Tricyclic Antidepressant,Urine Not Detected (NotDetected); Urn Cannabinoid Scrn Detected (NotDetected)
[2020-10-18 01:18] VITALS: BP 145/88; PULSE 64; RESP 16; TEMP 98.5
== END 2020-10-18 01:50 | disposition home or self-care (01) ==
LOC: EC 18:13
DX: F32.9 Major depressive disorder, single episode, unspecified (principal); J45.909 Unspecified asthma, uncomplicated; F12.90 Cannabis use, unspecified, uncomplicated
CPT/HCPCS: 80306; 82075; 99284

== ENCOUNTER 2020-12-08 17:59 | Emergency (ER) | payer OTHER ==
[2020-12-08] MEDS ORDERED: LORazepam 1 MG TAB PO STA (18:29)
[2020-12-08 18:50] LABS: Amphetamine Screen,Urine Not Detected (NotDetected); Barbiturate Screen,Urine Not Detected (NotDetected); Benzodiazepines Screen,Urine Not Detected (NotDetected); Cocaine Screen,Urine Not Detected (NotDetected); Methadone Screen, Urine Not Detected (NotDetected); Opiate Screen,Urine Not Detected (NotDetected); Oxycodone Screen, Urine Not Detected (NotDetected); Phencyclidine Screen,Urine Not Detected (NotDetected); Tricyclic Antidepressant,Urine Not Detected (NotDetected); Urn Cannabinoid Scrn Detected (NotDetected)
--- NOTE | 2020-12-08 19:25 | ED ---
Psych HPI - General Chief Complaint: Psychiatric Symptoms Stated Complaint: Mental health Time Seen by Provider: 12/08/20 18:09 Source: patient, family Mode of arrival: ambulatory - History of Present Illness Initial Comments: 20-year-old male presents to emergency Department with chief complaint of anxiety. Patient reports evening he was advised to stop taking the zi prasidone and methylphenidate. he reports feeling increasingly more anxious. States he took a clonazepam earlier this morning but he still feeling anxious. Patient reports she has racing thoughts. He also reports some nausea and having dry heaving whenever he is very anxious. He did not have any suicidal or homicidal thought at this time. However, states it is getting to the point where everything is so overwhelming that eventually he may become suicidal. - Related Data Home Medications Medication Instructions Recorded Confirmed busPIRone HCl [Buspar] 10 mg PO BID 02/10/17 12/08/20 Cetirizine HCl 10 mg PO HS 08/29/20 12/08/20 Vilazodone HCl [Viibryd] 40 mg PO AC-BRKFST 08/29/20 12/08/20 Albuterol Sulfate [Albuterol 2 puff INHALATION RT-Q4H PRN 10/17/20 12/08/20 Sulfate Hfa] Azelaic Acid 1 applic TOPICAL BID 10/17/20 12/08/20 Beclomethasone Dipropionate [Qvar 1 puff INHALATION RT-BID PRN 10/17/20 12/08/20 40 mcg Redihaler] clonazePAM [KlonoPIN] 0.25 - 0.5 mg PO DAILY PRN 12/08/20 12/08/20 Previous Rx's Medication Instructions Recorded Ondansetron Odt [Zofran Odt] 4 mg PO Q8HR PRN #10 tab 12/08/20 Allergies Allergy/AdvReac Type Severity Reaction Status Date / Time No Known Allergies Allergy Verified 12/08/20 18:49 Review of Systems ROS Statement: Those systems with pertinent positive or pertinent negative responses have been documented in the HPI. ROS Other: All systems not noted in ROS Statement are negative. Past Medical History Past Medical History: Asthma History of Any Multi-Drug Resistant Organisms: None Reported Past Surgical History: No Surgical Hx Reported Additional Past Surgical History / Comment(s): [place] teeth removal Past Anesthesia/Blood Transfusion Reactions: No Reported Reaction Past Psychological History: ADD/ADHD, Anxiety, Depression Smoking Status: Vaper Past Alcohol Use History: None Reported Past Drug Use History: Marijuana General Exam Limitations: no limitations General appearance: alert, in no apparent distress, obese Head exam: Present: atraumatic, normocephalic, normal inspection Eye exam: Present: normal appearance, EOMI Pupils: Present: normal accommodation ENT exam: Present: normal exam, normal oropharynx, mucous membranes moist Neck exam: Present: normal inspection, full ROM. Absent: tenderness Respiratory exam: Present: normal lung sounds bilaterally. Absent: respiratory distress Cardiovascular Exam: Present: regular rate, normal rhythm, normal heart sounds. Absent: systolic murmur Extremities exam: Present: normal inspection, full ROM Back exam: Present: normal inspection, full ROM Neurological exam: Present: alert, oriented X3 Psychiatric exam: Present: normal affect, normal mood Skin exam: Present: warm, dry, intact, normal color Course Vital Signs 12/08/20 18:00 Temperature 98.5 F Pulse Rate 81 Respiratory 18 Rate Blood Pressure 126/76 O2 Sat by Pulse 99 Oximetry Medical Decision Making - Medical Decision Making 20-year-old male presents to emergency Department with chief complaint of anxiety. On physical examination, patient is anxious. He was given anxiolytics here. On reevaluation, he reports improvement in symptoms. EPS evaluation the patient and they've recommended Zofran with outpatient follow-up. Safety plan discussed. Case discussed with - Lab Data Lab Results 12/08/20 Range/Units 18:19 Urine Opiates Screen Not Detected (NotDetected) Ur Oxycodone Screen Not Detected (NotDetected) Urine Methadone Screen Not Detected (NotDetected) Ur Propoxyphene Screen Not Detected (NotDetected) Ur Barbiturates Screen Not Detected (NotDetected) U Tricyclic Antidepress Not Detected (NotDetected) Ur Phencyclidine Scrn Not Detected (NotDetected) Ur Amphetamines Screen Not Detected (NotDetected) U Methamphetamines Scrn Not Detected (NotDetected) U Benzodiazepines Scrn Not Detected (NotDetected) Urine Cocaine Screen Not Detected (NotDetected) U Marijuana (THC) Screen Detected H (NotDetected) Disposition Clinical Impression: Adjustment reaction of adult life Disposition: HOME SELF-CARE Condition: Stable Instructions (If sedation given, give patient instructions): Anxiety (ED) Additional Instructions: Please return to the Emergency Department if symptoms worsen or any other concerns. Prescriptions: Ondansetron Odt [Zofran Odt] 4 mg PO Q8HR PRN #10 tab PRN Reason: Nausea Is patient prescribed a controlled substance at d/c from ED?: No Referrals: Patricia Wiley DO [Primary Care Provider] - 1-2 days Time of Disposition: 23:56
[2020-12-08] MEDS ORDERED: ONDANSETRON 4 MG ODT STARTER PACK 2 TAB BTL PO STA (23:55)
[2020-12-09 00:15] VITALS: BP 128/82; PULSE 78; RESP 16; TEMP 97.9
== END 2020-12-09 00:15 | disposition home or self-care (01) ==
LOC: EC 17:59
DX: F43.22 Adjustment disorder with anxiety (principal); J45.909 Unspecified asthma, uncomplicated; F32.9 Major depressive disorder, single episode, unspecified; E66.9 Obesity, unspecified; F17.290 Nicotine dependence, other tobacco product, uncomplicated; F12.90 Cannabis use, unspecified, uncomplicated; Z79.51 Long term (current) use of inhaled steroids; Z79.899 Other long term (current) drug therapy; Z68.32 Body mass index [BMI] 32.0-32.9, adult
CPT/HCPCS: 82075; 80306; 99283; S0119

== ENCOUNTER → 2021-12-17 | Outpatient (CLI) | payer OTHER ==
--- NOTE | 2021-12-18 10:58 | US ---
EXAMINATION TYPE: US scrotum with doppler. Grayscale and color Doppler Duplex imaging performed of shwetha ovalle scrotum. DATE OF EXAM: 12/17/2021 COMPARISON: NONE CLINICAL HISTORY: N50.812, N58.811. Patient states he felt a pea size lump that comes and goes. Radha ent states doctor did not feel area of concern. EXAM MEASUREMENTS: TESTICLES: Right Testicle: 4.8 x 3.8 x 3.0 cm Left Testicle: 4.4 x 3.4 x 2.7 cm EPIDIDYMIS HEAD: Right Epididymis: 1.3 x 0.9 x 0.7 cm Left Epididymis: 0.9 x 1.1 x 0.7 cm Doppler performed to assess for testicular vascularity; good bilateral color flow and waveforms are s een. There is no evidence of testicular torsion. Presence of hydroceles: no Presence of varicoceles: no IMPRESSION: 1. No discrete abnormality to correlate with palpable region.
== END | disposition home or self-care (01) ==
LOC: RADUSWWP 16:20
PROVIDERS: ATTEND Family Medicine
DX: N50.812 Left testicular pain (principal); N50.811 Right testicular pain
CPT/HCPCS: 76870; 93975

== ENCOUNTER → 2022-03-31 | Outpatient (CLI) | payer OTHER ==
--- NOTE | 2022-04-01 08:46 | MR ---
EXAMINATION TYPE: MR thoracic spine wo con DATE OF EXAM: 03/31/2022 11:57 AM COMPARISON: NONE HISTORY: Pain Multiplanar MultiSpin echo imaging of the thoracic spine was performed. Disc spaces: No evidence for herniation protrusion or significant degenerative disc disease. Spinal canal: No evidence for canal stenosis. No intrinsic or extrinsic lesion. Thoracic spinal cord: Thoracic spinal cord is of normal caliber and signal. Paraspinal soft tissues: No evidence for paraspinal mass. No destructive lesions seen. Vertebral segments: No evidence for fracture or bony lesion. IMPRESSION: Negative study
== END | disposition home or self-care (01) ==
LOC: RADMRIMAIN 10:51
PROVIDERS: ATTEND Nurse Practitioner Family
DX: M54.6 Pain in thoracic spine (principal)
CPT/HCPCS: 72146

== ENCOUNTER → 2022-04-23 | Outpatient (CLI) | payer OTHER ==
[2022-04-23 10:04] VITALS: BP 112/69; PULSE 66; RESP 18; TEMP 98.6
--- NOTE | 2022-04-23 14:50 | P.PAINPG ---
PQRS Measure Charge Sheet Comment: HISTORY OF PRESENT ILLNESS: 21 yr old male as a referral from [facility] presents today w severe and chronic thoracic pain secondary to for evaluation. Pt states pain level is at 9 /10 in intensity, constant, localized in the mid spine, achy in character w shooting pain towards the flanks. Pain is provoked by standing for periods of 30 min or more. Pain is alleviated by PT in November 2021, home exercise daily, chiropractic treatments in the past, heat, medications (Tramadol, Ibu), reclining and rest. PMH: Asthma, ADD/ ADHD, MDD/ Anxiety PSH: [place] Teeth Extraction SH: Vape use, No ETOH abuse, No illicit drug use FH: Non contributory All: NKDA Meds: See list REVIEW OF ORGAN SYSTEMS: CONSTITUTIONAL: No fevers or chills. No recent weight loss. NEUROLOGICAL: + numbness and tingling along the distal extremities. No seizure disorders or headaches. MUSCULOSKELETAL: + pain PSYCHIATRIC: Denies current depression or suicidal thoughts. Physical Examinations : Constitutional : Cooperative , not in acute distress . Neurologic : Cranial nerve II to XII intact. No focal neurological deficits. Psychiatric : alert & oriented x 3. Matching mood & appropriate affect. Judgment & insight intact. Musculoskeletal : Cervical Spine Motor strength in the deltoid and biceps: Normal right side. Normal Left side Motor strength biceps and the wrist extensors: Normal right side . Normal left side Motor strength in the triceps muscle: Normal right side. Normal left side Deep tendon reflexes: Normal at the biceps. Normal at Brachioradialis. Normal at triceps Vertebral body tenderness to deep palpation over Cervical facet loading test: positive bilaterally Spurling test: positive bilaterally Neck distraction test: positive bilaterally Karen sign: positive bilaterally Thoracic spine TTP over BL T6-T7, T7-T8 facets Lumbar spine Motor strength lower extremities ,thigh and legs 5/5 Right side , 5/5 Left side Deep tendon reflexes : Normal Knee Jerk. Normal Ankle Jerk Vertebral body tenderness over Lumbar facet Loading Test: positive Right / positive Left Range of motion of the lumbar spine Flexion 30 degrees, extension 10 degrees Straight Leg Raise test: Left/ Right positive at degree April test: positive right / positive left. Severe tenderness over the Sacroiliac joint on the Right / Left sides Gaenslen test: positive bilaterally Seated flexion test: positive bilaterally. Sacral spine : Severe tenderness over the Sacroiliac joint: right side / left side Range of motion: Flexion of the lumbar spine <60 degrees Range of motion: Extension of the lumbar spine <20 degrees Gaenslen's Test positive Toney's Test positive April test: positive right side / left side Thigh Thrust Test Sacral Thrust Test Imaging: MRI without contast of the thoracic spine from 03/31/22 reviewed Assessment/ Plan : Thoracic DDD Recommendation of BL facet blocks of the medial branches T6-T7, T7-T8 #1. May need a series of injections, up until RFA, for optimal pain relief. Risks, benefits of procedure discussed and patient verbalized understanding. Admits to aspirin or anti- coagulant use or medical history of diabetes. Protocol for discontinuation/ continuation of medications yue procedure discussed. All questions answered. I have spent greater than 30 minutes on patient care today. Dr Rosario was available by phone for the evaluation of this patient. The time was used to review the medical records including relevant urine studies and Prescription history (MAPs), review of the available imaging, evaluation and examination of the patient, coordination of care with the medical staff and if applicable referring physicians, as well as creation of the medical record PQRS Narrative: Smoking Status Never smoker Home Medications: Ambulatory Orders busPIRone HCl [Buspar] 10 mg PO BID 02/10/17 Cetirizine HCl 10 mg PO HS 08/29/20 Vilazodone HCl [Viibryd] 40 mg PO AC-BRKFST 08/29/20 Albuterol Sulfate [Albuterol Sulfate Hfa] 2 puff INHALATION RT-Q4H PRN 10/17/20 Azelaic Acid 1 applic TOPICAL BID 10/17/20 Beclomethasone Dipropionate [Qvar 40 mcg Redihaler] 1 puff INHALATION RT-BID PRN 10/17/20 Ondansetron Odt [Zofran Odt] 4 mg PO Q8HR PRN #10 tab 12/08/20 clonazePAM [KlonoPIN] 0.25 - 0.5 mg PO DAILY PRN 12/08/20 Controlled Substance Measures - Controlled Substance Measures Is patient prescribed a controlled substance at discharge?: No
== END ==
LOC: PNWHC3 08:50
PROVIDERS: ATTEND Specialist
DX: M51.34 Other intervertebral disc degeneration, thoracic region (principal); J45.909 Unspecified asthma, uncomplicated; F41.9 Anxiety disorder, unspecified
CPT/HCPCS: 99211

== ENCOUNTER 2022-05-23 07:00 | Day surgery (SDC) | payer OTHER ==
[2022-05-23] MEDS ORDERED: LACTATED RINGERS 1,000 ML IV SCH (07:15)
[2022-05-23] MEDS ORDERED: LIDOCAINE 1% (10MG/ML) FOR IV START INTRADERMA PRN (07:15)
[2022-05-23 07:25] VITALS: RESP 16; TEMP 97.5
[2022-05-23] MEDS ORDERED: methylPREDNISolone ACETATE 40 MG/ML 1 ML VIAL ONE (07:37)
[2022-05-23] MEDS ORDERED: fentaNYL (PF) 50 MCG/ML 2 ML AMP ONE (07:37)
[2022-05-23] MEDS ORDERED: ROPIVACAINE 5 MG/ML 20 ML AMPULE ONE (07:37)
[2022-05-23] MEDS ORDERED: MIDAZOLAM 2 MG/2 ML VIAL ONE (07:37)
[2022-05-23] MEDS ORDERED: IV FLUID CONTINUATION 1,000 ML IV ONE (08:07)
--- NOTE | 2022-05-23 08:10 | P.PCN ---
Date of Procedure: 05/23/22 Procedure(s) Performed: PREOPERATIVE DIAGNOSIS : 1- thoracic spondylosis with Facet Arthropathy without myelopathy . POSTOPERATIVE DIAGNOSIS: 1- Thoracic spondylosis with Facet Arthropathy without myelopathy . PROCEDURE: Diagnostic bilateral T2 ,T3 , T4 ,medial branch block under fluoroscopy guidance(fluoroscopy images available in the radiology Department ) ( To target the facet joint between bilateral T2-3 , T3-4 ) ANESTHESIA:, Monitored anesthesia care as per anesthesia departmen. EBL: Minimal COMPLICATION: None PROCEDURE INDICATION: Chronic low back pain secondary to Facet arthropathy unresponsive to conservative treatment. PROCEDURE DESCRIPTION: the patient was seen and identified in the preop holding area , risks and benefits and possible complications of the procedure and alternative were discussed with the patient, and the patient agreed to proceed with the procedure and signed the consent and vital signs monitored during the procedure and fluoroscopy was used to maximize the benefit and accuracy of the needle placement, and sedation was given to decrease patient anxiety, patient was taken to the procedure room and placed in prone position vital signs monitored in the back prepped with chlorhexidine X3 then under strict sterile technique using a right oblique fluoroscopy ,the junction of the transverse process and the superior articulating process of the right T2 , T3, T4 vertebra which corresponding to the fluoroscopy image of the eye of the Rosalino dog on the block side for the medial branches and subsequently , after local infiltration of skin and subcu tissuies with Ropivacaine 0.5 % , one mL at each level ,then 22-gauge Quincke-type needles , 3 needle was used , each one of them placed at the junction of the base of the transverse process and the superior articular process at the appropriate level, and the needle was advanced until the periosteum contacted, needle placement confirmed with AP oblique and lateral view and after appropriate needle placement confirmed, and after negative aspiration for heme and CSF and there was no paresthesia 1-1/2 mL of Ropivacaine 0.5% mixed with 20 mg Depo-Medrol , then half mL injected at each level after negative aspiration the needle subsequently removed and the same procedure repeated for the left side at left side at T2, T3 ,T4 levels. At the end of the procedure and the needles removed and a bandage applied after the skin was cleaned the cleaning solution patient taken to recovery room in stable condition and monitors in the recovery room for 20-30 minutes and discharged home in stable condition after discharge criteria met and patient will follow up with the pain clinic in 2-4 weeks note =the patient was scheduled to have diagnostic medial branch block at T6-7 and T7-8, but when we went to the procedure room, we checked levels that is consistent with ,the most painful area, which was located at ,T2 , T3 and T4,( levels checked under fluoroscopy), for this reason the procedure was changed to, a new levels ,which is T2 , T3, and T4 , and we checked with the insurance administrative assistant, that it's okay to change the levels, to the new level that is done today.
[2022-05-23 08:26] VITALS: BP 108/78; PULSE 75
--- NOTE | 2022-05-23 09:02 | FL ---
EXAMINATION TYPE: FL guided pain mgmt statistic DATE OF EXAM: 05/23/2022 FLUOROSCOPY Fluoroscopy time of 26 seconds was used during bilateral cervicothoracic facet blocks. 4 image/s doc ument/s the procedure.
== END 2022-05-23 08:40 ==
LOC: ORPAIN 07:00
PROVIDERS: ATTEND Specialist
DX: M47.814 Spondylosis without myelopathy or radiculopathy, thoracic region (principal); G89.29 Other chronic pain; F17.200 Nicotine dependence, unspecified, uncomplicated; J45.909 Unspecified asthma, uncomplicated; F32.A Depression, unspecified; F41.9 Anxiety disorder, unspecified; F90.9 Attention-deficit hyperactivity disorder, unspecified type; F12.90 Cannabis use, unspecified, uncomplicated; Z79.1 Long term (current) use of non-steroidal anti-inflammatories (NSAID); Z79.899 Other long term (current) drug therapy
CPT/HCPCS: 64490; 64491 ×2; J2250; J1030; J3010; J2795

== ENCOUNTER → 2022-06-09 | Outpatient (CLI) | payer OTHER ==
[2022-06-09 10:16] VITALS: BP 122/88; PULSE 90; RESP 18; TEMP 98.8
--- NOTE | 2022-06-09 14:31 | P.PAINPG ---
PQRS Measure Charge Sheet Comment: A 21 yr old male with a history of severe and chronic mid back pain secondary to thoracic spondylosis with facet arthropathy without myelopathy presents today for evaluation s/p BL facet block of the medial branches T2-T3, T3-T4 #1. Pt states he experienced 20 % pain relief s/p procedure. Pain level is provoked at 8/10 in intensity, constant, localized in the thoracic spine, sore in character w shooting towards the L flank towards the shoulder blade. Pain is provoked by heavy lifting. Pain is alleviated with PT weekly x 4 wks in Nov 2021, chiropractic treatments semi monthly x 2 yrs Apr 2021, heat, ice, meds (Ibu), laying supine and rest. Interventional pain procedures completed include BL MBB T1-T4 x1 Patient is currently on Ibu Patient denies any side effects of the medication(s), denies excessive drowsiness or sleepiness, denies suicidal ideation and reports that the current pain medication is helping to control the pain and improve activities of daily living. Patient denies any motor or sensory deficits. Patient denies any fever or night sweats, denies any change in the bowel movements or urination. Physical Examination: -Constitutional: Cooperative. Not in acute distress . - Neurologic: Cranial nerve II to XII intact. No focal neurological deficits. - Psychatric: Alert & oriented x 3. Matching mood & appropriate affect. Judgment and insight intact. - Musculoskeletal: Cervical spine: Muscle bulk/ tone/ strength in the bilateral upper extremities normal Vertebral body tenderness to palpation over Spurling test positive Distraction test positive Facet loading test positive Thoracic spine Muscle bulk / tone/ strength in the bilateral paraspinal muscles normal Vertebral body tender to palpation over T2 Facet loading test positive Lumbar spine: Motor bulk/ tone/ strength lower extremities , thigh and legs : 5/5 Deep tendon reflexes : Normal Knee Jerk. Normal Ankle Jerk . Vertebral body tenderness to palpation over Lumbar Facet Loading Test positive Straight Leg Raise: positive at 30 degrees right side/ left side Gaenslen's Test positive Sacral spine : Severe tenderness over the Sacroiliac joint: right side / left side Range of motion: Flexion of the lumbar spine <60 degrees Range of motion: Extension of the lumbar spine <20 degrees Gaenslen's Test positive April test: positive right side / left side Thigh Thrust Test Sacral Thrust Test Assessment and plan: Chronic LBP secondary to lumbar DDD, spondylosis with facet arthropathy without myelopathy Recommendation of LILI T2-T3 #1. May need a series of injections, up to 3 within a 6 mo period, for optimal pain relief. Risks, benefits of procedure discussed and pt verbalized understanding. Admits to anticoagulant use or medical history of diabetes. Protocol for discontinuation / continuation of medications yue procedure discussed. All patient questions answered I have spent less than 30 minutes on patient care today. Dr Rosario was available by phone for the evaluation of this patient. The time was used to review the medical records including relevant urine studies and Prescription history (MAPs), review of the available imaging, evaluation and examination of the patient, coordination of care with the medical staff and if applicable referring physicians, as well as creation of the medical record PQRS Narrative: Smoking Status Never smoker Hx Alcohol Use (MH) No Home Medications: Ambulatory Orders busPIRone HCl [Buspar] 10 mg PO BID 02/10/17 Cetirizine HCl 10 mg PO HS 08/29/20 Beclomethasone Dipropionate [Qvar 40 mcg Redihaler] 1 puff INHALATION RT-BID PRN 10/17/20 Amphetamine [Dyanavel Xr] 10 mg PO DAILY 04/23/22 Ibuprofen [Motrin Ib] 200 mg PO Q4-6H PRN 04/23/22 Ketorolac [Toradol] 10 mg PO Q6HR 04/23/22 Mirtazapine 15 mg PO DAILY 04/23/22 Vortioxetine Hydrobromide [Trintellix] 20 mg PO DAILY 04/23/22 Controlled Substance Measures - Controlled Substance Measures Is patient prescribed a controlled substance at discharge?: No
== END ==
LOC: PNWHC3 09:43
PROVIDERS: ATTEND Specialist
DX: M47.816 Spondylosis without myelopathy or radiculopathy, lumbar region (principal); M51.36 Other intervertebral disc degeneration, lumbar region; G89.29 Other chronic pain
CPT/HCPCS: 99211

== ENCOUNTER 2022-10-15 18:59 | Emergency (ER) | payer OTHER ==
[2022-10-15 19:26] VITALS: RESP 20
[2022-10-15] MEDS ORDERED: DEXAMETHASONE SOD PHOSPHATE 10 MG/ML 1 ML VIAL IM STA (20:28)
[2022-10-15] MEDS ORDERED: KETOROLAC 15 MG/ML 1 ML VIAL IM STA (20:28)
[2022-10-15] MEDS ORDERED: LIDOCAINE 5% PATCH TOPICAL SCH (20:45)
--- NOTE | 2022-10-15 21:12 | ED ---
Back Pain HPI - General Chief Complaint: Back Pain/Injury Stated Complaint: upper back pain Time Seen by Provider: 10/15/22 20:19 Source: patient Limitations: no limitations - History of Present Illness Initial Comments: 21-year-old male presenting with chief complaint of back pain. Patient has had thoracic back pain ongoing for the last 2 years. States that he was previously in pain management but was unable to afford it after some time. States that today he was overwhelmed with the amount of pain. No new injury or trauma. No numbness or tingling. No chest pain or difficulty breathing. No loss of bowel or bladder control or saddle paresthesia. No palpitations or weakness. - Related Data Home Medications Medication Instructions Recorded Confirmed busPIRone HCl [Buspar] 10 mg PO BID 02/10/17 06/09/22 Cetirizine HCl 10 mg PO HS 08/29/20 06/09/22 Beclomethasone Dipropionate [Qvar 1 puff INHALATION RT-BID PRN 10/17/20 06/09/22 40 mcg Redihaler] Amphetamine [Dyanavel Xr] 10 mg PO DAILY 04/23/22 06/09/22 Ibuprofen [Motrin Ib] 200 mg PO Q4-6H PRN 04/23/22 06/09/22 Ketorolac [Toradol] 10 mg PO Q6HR 04/23/22 06/09/22 Mirtazapine 15 mg PO DAILY 04/23/22 06/09/22 Vortioxetine Hydrobromide 20 mg PO DAILY 04/23/22 06/09/22 [Trintellix] Previous Rx's Medication Instructions Recorded Cyclobenzaprine [Flexeril] 10 mg PO TID PRN #15 tab 10/15/22 Lidocaine 5% Patch [Lidoderm 5% 1 patch TOPICAL DAILY PRN #30 patch 10/15/22 Patch] Allergies Allergy/AdvReac Type Severity Reaction Status Date / Time No Known Allergies Allergy Verified 10/15/22 19:26 Review of Systems ROS Statement: Those systems with pertinent positive or pertinent negative responses have been documented in the HPI. ROS Other: All systems not noted in ROS Statement are negative. Past Medical History Past Medical History: Asthma History of Any Multi-Drug Resistant Organisms: None Reported Past Surgical History: No Surgical Hx Reported Additional Past Surgical History / Comment(s): [place] teeth removal Past Anesthesia/Blood Transfusion Reactions: No Reported Reaction Past Psychological History: ADD/ADHD, Anxiety, Depression Smoking Status: Current some day smoker, Vaper Past Alcohol Use History: None Reported Past Drug Use History: None Reported General Exam Limitations: no limitations General appearance: alert, in no apparent distress Head exam: Present: atraumatic, normocephalic, normal inspection Eye exam: Present: normal appearance, EOMI. Absent: scleral icterus, periorbital swelling Neck exam: Present: normal inspection, full ROM Respiratory exam: Present: normal lung sounds bilaterally. Absent: respiratory distress, wheezes, rales, rhonchi, stridor Cardiovascular Exam: Present: regular rate, normal rhythm, normal heart sounds. Absent: systolic murmur, diastolic murmur, rubs, gallop, clicks Back exam: Present: normal inspection, paraspinal tenderness. Absent: vertebral tenderness Neurological exam: Present: alert, oriented X3, CN II-XII intact Psychiatric exam: Present: normal affect, normal mood Skin exam: Present: warm, dry, intact, normal color. Absent: rash Course Vital Signs 10/15/22 10/15/22 19:21 21:17 Temperature 96.8 F L 98.2 F Pulse Rate 111 H 70 Respiratory 20 20 Rate Blood Pressure 125/90 117/80 O2 Sat by Pulse 99 98 Oximetry Medical Decision Making - Medical Decision Making Was pt. sent in by a medical professional or institution (Dr. PA, [facility] [employer], urgent care, hospital, or fpc...) When possible be specific @ -No Did you speak to anyone other than the patient for history (EMS, parent, family, police, friend...)? What history was obtained from this source @ -No Did you review nursing and triage notes (agree or disagree)? Why? @ -I reviewed and agree with nursing and triage notes Were old charts reviewed (outside hosp., previous admission, EMS record, old EKG, old radiological studies, urgent care reports/EKG's, fpc records)? Report findings @ -No old charts were reviewed Differential Diagnosis (chest pain, altered mental status, abdominal pain women, abdominal pain men, vaginal bleeding, weakness, fever, dyspnea, syncope, headache, dizziness, GI bleed, back pain, seizure, CVA, palpatations, mental health, musculoskeletal)? @ - MDM Differential Back Pain: Strain, zoster, cauda equina syndrome, epidural abscess, vertebral osteomyelitis, discitis, fracture, subluxation, disc herniation, DJD, spinal stenosis, dissection, AAA, pancreatitis, peptic ulcer disease, pyelonephritis, kidney stone this is not meant to be an all-inclusive list. EKG interpreted by me (3pts min.). @ -As above X-rays interpreted by me (1pt min.). @ -None done CT interpreted by me (1pt min.). @ -None done U/S interpreted by me (1pt. min.). @ -None done What testing was considered but not performed or refused? (CT, X-rays, U/S, labs)? Why? @ -None What meds were considered but not given or refused? Why? @ -None Did you discuss the management of the patient with other professionals (professionals i.e. , PA, [employer], lab, RT, psych nurse, social service agency director, soup person, teacher, duty officer, case picker)? Give summary @ -No Was smoking cessation discussed for >3mins.? @ -No Was critical care preformed (if so, how long)? @ -No Were there social determinants of health that impacted care today? How? (Homelessness, low income, unemployed, alcoholism, drug addiction, transportation, low edu. Level, literacy, decrease access to med. care, [facility], rehab)? @ -No Was there de-escalation of care discussed even if they declined (Discuss DNR or withdrawal of care, Hospice)? DNR status @ -No What co-morbidities impacted this encounter? (DM, HTN, Smoking, COPD, CAD, Cancer, CVA, ARF, Chemo, Hep., AIDS, mental health diagnosis, sleep apnea, morbid obesity)? @ -None Was patient admitted / discharged? Hospital course, mention meds given and route, prescriptions, significant lab abnormalities, going to OR and other pertinent info. @ -21-year-old male presenting with chief complaint of back pain. Pain is been chronic for the last 2 years. Physical examination is unremarkable no red flag symptoms. Patient reports improvement after Toradol, Decadron, and lidocaine patch. He is educated on supportive management at home and provided with lidocaine patches and cyclobenzaprine. Follow-up with PCP. Report back to ER with any new or worsening symptoms. Discussed return parameters and answered all questions. Patient conveyed verbal understanding and agreed to the plan. I discussed this case in detail with my attending Dr. Vernon Undiagnosed new problem with uncertain prognosis? @ -No Drug Therapy requiring intensive monitoring for toxicity (Heparin, Nitro, Insulin, Cardizem)? @ -No Were any procedures done? @ -No Diagnosis/symptom? @ -Chronic back pain Acute, or Chronic, or Acute on Chronic? @ -Acute on chronic Uncomplicated (without systemic symptoms) or Complicated (systemic symptoms)? @ -Uncomplicated Side effects of treatment? @ -No Exacerbation, Progression, or Severe Exacerbation? @ -No Poses a threat to life or bodily function? How? (Chest pain, [place], [place], pneumonia, PE, COPD, DKA, ARF, appy, cholecystitis, CVA, Diverticulitis, Homicidal, Suicidal, threat to staff... and all critical care pts) @ -No Disposition Clinical Impression: Thoracic back pain Disposition: HOME SELF-CARE Condition: Good Instructions (If sedation given, give patient instructions): Chronic Back Pain (DC) Additional Instructions: Follow-up with PCP. Report back to ER with any new or worsening symptoms. Take medication as prescribed. Do not take cyclobenzaprine before driving or operating heavy machinery as it may cause drowsiness. Prescriptions: Cyclobenzaprine [Flexeril] 10 mg PO TID PRN #15 tab PRN Reason: Spasms Lidocaine 5% Patch [Lidoderm 5% Patch] 1 patch TOPICAL DAILY PRN #30 patch PRN Reason: Pain Is patient prescribed a controlled substance at d/c from ED?: No Referrals: Nonstaff,Physician [Primary Care Provider] - 1-2 days Time of Disposition: 21:12
[2022-10-15 21:20] VITALS: BP 117/80; PULSE 70; TEMP 98.2
== END 2022-10-15 21:19 | disposition home or self-care (01) ==
LOC: EC 18:59
DX: M54.6 Pain in thoracic spine (principal); J45.909 Unspecified asthma, uncomplicated; F17.290 Nicotine dependence, other tobacco product, uncomplicated; Z79.899 Other long term (current) drug therapy
CPT/HCPCS: 99283; 96372 ×2; J1100; J1885